=== PATIENT | male | born 1960 | race Two or more races ===

== ENCOUNTER 2020-01-11 20:00 | Emergency (ER) | payer MEDICARE, OTHER ==
[~2020-01-11] VITALS: Ht 167.6 cm; Wt 132.3 kg
--- NOTE | 2020-01-11 20:35 | PHYS DOC ---
General Adult EDM: Chief Complaint: ABDOMINAL PAIN HPI: HPI: 59-year-old male presents with right lower quadrant abdominal pain. He has had this pain for 4 days. He was not getting better so he decided he should be evaluated. 4 years ago, he had some kind of obstruction that they did a procedure to resolve. He did not have surgery. He's had no abdominal surgeries. He still has gallbladder and appendix. Patient denies fever or chills. The pain is a cramping sensation moderate to severe intensity. He denies nausea or vomiting. Review of Systems: Review of Systems: Constitutional: Denies fever or chills Eyes: Denies change in visual acuity HENT: Denies nasal congestion or sore throat Respiratory: Denies cough or shortness of breath Cardiovascular: Denies chest pain or edema GI: Right lower quadrant abdominal pain. Denies nausea, vomiting, bloody stools or diarrhea : Denies dysuria Musculoskeletal: Denies back pain or joint pain Integument: Denies rash Neurologic: Denies headache, focal weakness or sensory changes Endocrine: Denies polyuria or polydipsia Lymphatic: Denies swollen glands Psychiatric: Denies depression or anxiety Heart Score: Risk Factors: Risk Factors: DM, Current or recent (<one month) smoker, HTN, HLP, family history of CAD, obesity. Risk Scores: Score 0 - 3: 2.5% MACE over next 6 weeks - Discharge Home Score 4 - 6: 20.3% MACE over next 6 weeks - Admit for Clinical Observation Score 7 - 10: 72.7% MACE over next 6 weeks - Early Invasive Strategies Current Medications: Current Meds: Current Medications Medications (Trade) Dose Ordered Sig/Shmuel Start Time Stop Time Status Last Admin Dose Admin Info (Do NOT chart on this entry -- for MONITORING) 1 each PRN DAILY PRN 01/11/20 20:45 01/13/20 20:44 Iohexol (Omnipaque 300 Mg/ml) 25 ml 1X ONCE 01/11/20 20:30 01/11/20 20:31 DC Sodium Chloride 1,000 ml @ 1,000 mls/hr 1X ONCE 01/11/20 20:30 01/11/20 21:29 Allergies: Allergies: Allergies Coded Allergies Type Severity Reaction Last Updated Verified No Known Drug Allergies 01/11/20 No Physical Exam: PE: Constitutional: Well developed, mildly obese, well nourished, no acute distress, non-toxic appearance. [] HENT: Normocephalic, atraumatic, bilateral external ears normal, oropharynx mo ist, no oral exudates, nose normal. [] Eyes: PERRLA, EOMI, conjunctiva normal, no discharge. [] Neck: Normal range of motion, no tenderness, supple, no stridor. [] Cardiovascular: Heart rate regular rhythm, no murmur [] Lungs & Thorax: Bilateral breath sounds clear to auscultation [] Abdomen: Bowel sounds normal, soft, right sided tenderness, no masses, no pulsatile masses. [] Skin: Warm, dry, no erythema, no rash. [] Back: No tenderness, no CVA tenderness. [] Extremities: No tenderness, no cyanosis, no clubbing, ROM intact, no edema. [] Neurologic: Alert and oriented X 3, normal motor function, normal sensory function, no focal deficits noted. [] Psychologic: Affect normal, judgement normal, mood normal. [] EKG: EKG: [] Radiology/Procedures: Radiology/Procedures: [] Impressions: Exam: CT abdomen and pelvis with contrast INDICATION: Right lower quadrant pain for 4 days TECHNIQUE: Sequential axial images through the abdomen and pelvis obtained following the administration of 100 mL of Omni 300 IV contrast. Sagittal and coronal reformatted images were reconstructed from the axial data and reviewed. Comparisons: None FINDINGS: Heart size is normal. No pericardial effusion. Visualized lung bases are clear. No pleural effusion. Liver, spleen, pancreas, gallbladder and adrenals are unremarkable. No perinephric inflammation or hydronephrosis. There is a nonobstructing 2 mm calculus at the lower pole right kidney. No ureteral calculi are identified. Bladder is decompressed not well evaluated. Prostate is not enlarged. Few scattered diverticula are noted predominantly within the descending colon. There is a inflamed diverticula at the cecum with adjacent fat stranding. No focal fluid collection. Remainder of the large and small bowel are unremarkable. Appendix is normal. Abdominal aorta has a normal course and caliber. Abdominal vasculature is patent. No enlarged intra-abdominal lymph nodes are identified. No suspicious osseous lesions or acute fractures. IMPRESSION: Findings of acute diverticulitis at the cecum. No evidence for perforation or adjacent abscess. Exposure: One or more of the following in the visualized dose reduction techniques were utilized for this examination: 1. Automated exposure control 2. Adjustment of the MA and/or KV according to patient size 3. Use of iterative of reconstructive technique Electronically signed by: Irineo Sheppard MD (01/11/2020 9:25 PM) [id number] DICTATED AND SIGNED BY: IRINEO SHEPPARD MD DATE: 01/11/202124 CC: DAMIAN MONTERO DO; YANA DEE MD ~ Course & Med Decision Making: Course & Med Decision Making Pertinent Labs and Imaging studies reviewed. (See chart for details) The patient's CT is significant for acute diverticulitis of the cecum. I will treat him with Augmentin for 10 days. He had an elevated white count of 16.1. The rest of the patient's labs are unremarkable except for slight elevated alkaline phosphatase and bilirubin. His potassium is 3.3. His urinalysis is negative for infection. He is stable for discharge at this time. [] Dragon Disclaimer: Dragon Disclaimer: This electronic medical record was generated, in whole or in part, using a voice recognition dictation system. Departure Departure: Impression: Primary Impression: Acute diverticulitis Disposition: HOME, SELF-CARE Condition: STABLE Referrals: YANA DEE MD (PCP) Patient Instructions: Diverticulitis, [id number] Scripts Amoxicillin/Potassium Clav (AUGMENTIN 875-125 TABLET) 1 Each Tablet 1 TAB PO BID for diverticulitis for 10 Days, #20 TAB 0 Refills Prov: DAMIAN MONTERO DO 01/11/20 DAMIAN MONTERO DO Jan 11, 2020 20:35
[2020-01-11] MEDS ORDERED: CONTRAST GIVEN MC PRN (20:45)
[2020-01-11] MEDS: IV NORMAL SALINE 1,000ML 1,000 ML IV ONE (20:45)
[2020-01-11] MEDS: IOHEXOL 300 MG/ML 75 ML VIAL. IV ONE ×2 (20:52→20:53)
[2020-01-11 21:17] LABS: BASO # 0.1 x10^3/uL (0.0-0.2); BASO % 0 % (0-3); EOS # 0.1 x10^3/uL (0.0-0.7); EOS % 1 % (0-3); HEMATOCRIT 47.3 % (39.0-53.0); HEMOGLOBIN 15.5 g/dL (13.0-17.5); LYMPH # 1.8 x10^3/uL (1.0-4.8); LYMPH % 11 % (24-48); MEAN CORPUSCULAR HEMOGLOBIN 28 pg (25-35); MEAN CORPUSCULAR HGB CONC 33 g/dL (31-37); MEAN CORPUSCULAR VOLUME 84 fL (79-100); MONO # 1.3 x10^3/uL (0.0-1.1); MONO % 8 % (0-9); NEUT # 12.8 x10^3uL (1.8-7.7); NEUT % 80 % (31-73); PLATELET COUNT 232 x10^3/uL (140-400); RED BLOOD COUNT 5.63 x10^6/uL (4.30-5.70); RED CELL DISTRIBUTION WIDTH 13.8 % (11.5-14.5); WHITE BLOOD COUNT 16.1 x10^3/uL (4.0-11.0)
[2020-01-11 21:18] LABS: CALCIUM 8.9 mg/dL (8.5-10.1); POTASSIUM 3.3 mmol/L (3.5-5.1)
[2020-01-11 21:25] LABS: ALBUMIN 3.6 g/dL (3.4-5.0); ALBUMIN/GLOBULIN RATIO 0.9 (1.0-1.7); TOTAL BILIRUBIN 1.4 mg/dL (0.2-1.0); TOTAL PROTEIN 7.8 g/dL (6.4-8.2)
--- NOTE | 2020-01-11 21:28 | RAD ---
Exam: CT abdomen and pelvis with contrast INDICATION: Right lower quadrant pain for 4 days TECHNIQUE: Sequential axial images through the abdomen and pelvis obtained following the administration of 100 mL of Omni 300 IV contrast. Sagittal and coronal reformatted images were reconstructed from the axial data and reviewed. Comparisons: None FINDINGS: Heart size is normal. No pericardial effusion. Visualized lung bases are clear. No pleural effusion. Liver, spleen, pancreas, gallbladder and adrenals are unremarkable. No perinephric inflammation or hydronephrosis. There is a nonobstructing 2 mm calculus at the lower pole right kidney. No ureteral calculi are identified. Bladder is decompressed not well evaluated. Prostate is not enlarged. Few scattered diverticula are noted predominantly within the descending colon. There is a inflamed diverticula at the cecum with adjacent fat stranding. No focal fluid collection. Remainder of the large and small bowel are unremarkable. Appendix is normal. Abdominal aorta has a normal course and caliber. Abdominal vasculature is patent. No enlarged intra-abdominal lymph nodes are identified. No suspicious osseous lesions or acute fractures. IMPRESSION: Findings of acute diverticulitis at the cecum. No evidence for perforation or adjacent abscess. Exposure: One or more of the following in the visualized dose reduction techniques were utilized for this examination: 1. Automated exposure control 2. Adjustment of the MA and/or KV according to patient size 3. Use of iterative of reconstructive technique Electronically signed by: Irineo Michele MD (01/11/2020 9:25 PM) [id number]
[2020-01-11] MEDS ORDERED: AMOX1TAB61 PO (21:33)
[2020-01-11 21:37] LABS: % SEGS 76 % (35-66)
[2020-01-11 21:38] LABS: % ATYL 1 % (0-0); % EOS 3 % (0-5); % LYMPHS 14 % (24-48); % MONOS 6 % (0-10); PLT ESTIMATE ADEQUATE (ADEQUATE)
[2020-01-11 21:41] LABS: BILIRUBIN,URINE NEG (NEG); CLARITY,URINE CLEAR; COLOR,URINE YELLOW; GLUCOSE,URINE NEG (NEG)
[2020-01-11 21:42] LABS: BACTERIA,URINE 0 /HPF (0-FEW); NITRITE,URINE NEG (NEG); SQUAMOUS EPITHELIAL CELL,UR OCC /LPF; WBC,URINE OCC /HPF (0-4)
[2020-01-11] MEDS: AMOXICILLIN/K CLAV 875/125MG TABLET. PO ONE (21:50)
[2020-01-11 21:54] VITALS: BP 146/100
== END 2020-01-11 21:56 | disposition home or self-care (01) ==
LOC: ER 20:00
DX: K57.32 Diverticulitis of large intestine without perforation or abscess without bleeding (principal)
CPT/HCPCS: 36415; 74177; 80053; 81001; 83690; 85007; 85025; 99285; Q9967; J7030

== ENCOUNTER → 2020-03-13 | Outpatient (CLI) | payer MEDICARE, OTHER ==
[~2020-03-13] MED LIST: AMOX1TAB61 PO
--- NOTE | 2020-03-13 15:26 | RAD ---
3 views of the sacrum and coccyx without comparison for low back pain in the tailbone area, possible spina bifida. FINDINGS: There is no fracture or acute osseous abnormality identified. No suspicious osteoblastic or osteolytic bone lesions are seen. There does appear to be a spina bifida occulta at S5. IMPRESSION: 1. No acute osseous abnormality. 2. Spina bifida occulta at S1. This is of doubtful clinical significance. Electronically signed by: Cornelio Alexander MD (03/13/2020 3:23 PM) [id number]
== END | disposition home or self-care (01) ==
LOC: RAD 13:23
PROVIDERS: ATTEND Family Medicine
DX: M54.5 Low back pain (principal); Q05.8 Sacral spina bifida without hydrocephalus
CPT/HCPCS: 72220

== ENCOUNTER 2020-10-03 14:58 | Emergency (ER) | payer MEDICARE, OTHER ==
[~2020-10-03] VITALS: Ht 167.6 cm; Wt 137.5 kg
[2020-10-03] MEDS ORDERED: IOHEXOL 300 MG/ML 75 ML VIAL. IV ONE (15:30)
[2020-10-03] MEDS ORDERED: ASPIRIN CHEWABLE 81 MG TABLET. PO ONE (15:30)
[2020-10-03] MEDS ORDERED: MORPHINE SULFATE 4 MG/ML DISP.SYRIN. IV ONE (15:30)
[2020-10-03 15:44] LABS: BASO % 0 % (0-3); EOS # 0.3 x10^3/uL (0.0-0.7); EOS % 3 % (0-3); HEMATOCRIT 47.2 % (39.0-53.0); HEMOGLOBIN 15.7 g/dL (13.0-17.5); LYMPH # 2.4 x10^3/uL (1.0-4.8); LYMPH % 25 % (24-48); MEAN CORPUSCULAR HEMOGLOBIN 28 pg (25-35); MEAN CORPUSCULAR HGB CONC 33 g/dL (31-37); MEAN CORPUSCULAR VOLUME 84 fL (79-100); MONO # 0.7 x10^3/uL (0.0-1.1); MONO % 8 % (0-9); NEUT # 6.1 x10^3uL (1.8-7.7); NEUT % 64 % (31-73); PLATELET COUNT 236 x10^3/uL (140-400); RED BLOOD COUNT 5.64 x10^6/uL (4.30-5.70); RED CELL DISTRIBUTION WIDTH 13.4 % (11.5-14.5); WHITE BLOOD COUNT 9.5 x10^3/uL (4.0-11.0)
--- NOTE | 2020-10-03 15:45 | RAD ---
EXAM: Chest, single view. HISTORY: Epigastric pain. COMPARISON: None. FINDINGS: A frontal view of the chest is obtained. There is diffuse interstitial prominence. There is right greater than left pleural thickening likely due to extrapleural fat. There is a prominent card iac silhouette, likely due to portable technique. There is no consolidation, pleural fusion or pneumo thorax. IMPRESSION: Diffuse interstitial prominence without damon congestion or focal consolidation. Electronically signed by: Mary Grace Lemon MD (10/03/2020 3:42 PM) [id number]
--- NOTE | 2020-10-03 15:48 | PHYS DOC ---
Past History Past Medical History: Arthritis, GERD, Hypothyroid, Other Additional Past Medical Histor: COLITIS, NEUROPATHY Past Surgical History: Tonsillectomy, Other Additional Past Surgical Histo: BILATERAL CARPAL TUNNEL, NASAL SEPTUM Alcohol Use: None Adult General Chief Complaint Chief Complaint: ABDOMINAL PAIN HPI HPI Patient is a 60-year-old male presenting for centralized midline abdominal pain. Onset was first reported today at 1200 hrs. Patient reports having unremarkable morning, denies any recent changes in health or illness. Ate breakfast around 10 AM that consisted mostly of tortilla-based tortilla foods, denies any fatty or spicy foods. Reports 2 hours later experiencing generalized midline/epigastric abdominal pain. Patient attempted to take x2 doses of omeprazole with no improvement. Patient was on way to take family member to outpatient doctor appointment when he started developing 10 out of 10 severe centralized abdominal pain prompting him to report immediately to our ER for evaluation. Patient does admit since being in ER decreased in pain but still rates it 7 out of 10 in severity. Pain is sharp centralized to middle of abdomen without radiation. Patient reports having similar pain like this in the past when he was diagnosed with diverticulitis but admits his pain at that time was around his flank not midline. Denies any cardiac history, no prior abdominal surgeries. Denies any COVID-19 contact, fever, chest pain, shortness of breath, cough or sputum production, no nausea vomit or diarrhea, no bladder or bowel incontinence, no motor or sensory function loss, no neurologic deficits Review of Systems Review of Systems Fourteen body systems of review of systems have been reviewed. See HPI for pertinent positives and negative responses, other beckham all other systems are negative, non-pertinent or non-contributory Current Medications Current Medications Current Medications Medications (Trade) Dose Ordered Sig/Shmuel Start Time Stop Time Status Last Admin Dose Admin Aspirin (Aspirin Chewable) 324 mg 1X ONCE 10/03/20 15:30 10/03/20 15:31 DC 10/03/20 15:42 324 MG Hydromorphone HCl (Dilaudid) 1 mg 1X ONCE 10/03/20 16:15 10/03/20 16:30 DC 10/03/20 16:25 1 MG Iohexol (Omnipaque 300 Mg/ml) 75 ml 1X ONCE 10/03/20 15:30 10/03/20 15:31 DC 10/03/20 15:30 75 ML Morphine Sulfate (Morphine 4mg Syringe) 4 mg 1X ONCE 10/03/20 15:30 10/03/20 15:31 DC 10/03/20 15:43 4 MG Piperacillin Sod/ Tazobactam Sod (Zosyn) 4.5 gm STK-MED ONCE 10/03/20 17:05 10/03/20 17:06 DC Piperacillin Sod/ Tazobactam Sod 4.5 gm/Sodium Chloride 50 ml @ 100 mls/hr 1X ONCE 10/03/20 16:45 10/03/20 17:14 DC Sodium Chloride 50 ml @ As Directed STK-MED ONCE 10/03/20 17:05 10/03/20 17:06 DC Allergies Allergies Allergies Coded Allergies Type Severity Reaction Last Updated Verified No Known Drug Allergies 01/11/20 No Physical Exam Physical Exam Constitutional: Well developed, well nourished, no acute distress, non-toxic appearance. HENT: Normocephalic, atraumatic, bilateral external ears normal, oropharynx moist, no oral exudates, nose normal. Eyes: PERRLA, EOMI, conjunctiva normal, no discharge. Neck: Normal range of motion, no tenderness, supple, no stridor. Cardiovascular: Heart rate regular, sinus rhythm, no murmurs rubs or gallops Lungs & Thorax: Bilateral breath sounds clear to auscultation Abdomen: Bowel sounds normal, soft but distended, there is generalized midline and epigastric tenderness with palpation with guarding and rebound present, no palpable or visual masses, no pulsatile masses. Although difficult due to body habitus, positive Browne sign, negative Rovsing sign, negative heel strike Skin: Warm, dry, no erythema, no rash. Back: No tenderness, no CVA tenderness. Extremities: No tenderness, no cyanosis, no clubbing, ROM intact, no edema. Neurologic: Alert and oriented X 3, grossly normal motor & sensory function, no focal deficits noted. Psychologic: Anxious affect and mood Current Patient Data Vital Signs Vital Signs Date Time Temp Pulse Resp B/P (MAP) Pulse Ox O2 Delivery O2 Flow Rate FiO2 10/03/20 15:43 24 10/03/20 15:10 98.1 71 147/90 (109) 100 Room Air Lab Results Laboratory Tests Test 10/03/20 15:20 White Blood Count 9.5 x10^3/uL (4.0-11.0) Red Blood Count 5.64 x10^6/uL (4.30-5.70) Hemoglobin 15.7 g/dL (13.0-17.5) Hematocrit 47.2 % (39.0-53.0) Mean Corpuscular Volume 84 fL (79-100) Mean Corpuscular Hemoglobin 28 pg (25-35) Mean Corpuscular Hemoglobin Concent 33 g/dL (31-37) Red Cell Distribution Width 13.4 % (11.5-14.5) Platelet Count 236 x10^3/uL (140-400) Neutrophils (%) (Auto) 64 % (31-73) Lymphocytes (%) (Auto) 25 % (24-48) Monocytes (%) (Auto) 8 % (0-9) Eosinophils (%) (Auto) 3 % (0-3) Basophils (%) (Auto) 0 % (0-3) Neutrophils # (Auto) 6.1 x10^3uL (1.8-7.7) Lymphocytes # (Auto) 2.4 x10^3/uL (1.0-4.8) Monocytes # (Auto) 0.7 x10^3/uL (0.0-1.1) Eosinophils # (Auto) 0.3 x10^3/uL (0.0-0.7) Basophils # (Auto) 0.0 x10^3/uL (0.0-0.2) EKG EKG EKG ordered and interpreted by myself at 1606 ordered sinus rhythm at 64 bpm, prolonged QTC at 475 otherwise unremarkable intervals, no axis deviation, nonspecific T wave abnormalities noted in lead aVL otherwise no STEMI Radiology/Procedures Radiology/Procedures EXAM: Chest, single view. HISTORY: Epigastric pain. COMPARISON: None. FINDINGS: A frontal view of the chest is obtained. There is diffuse interstitial prominence. There is right greater than left pleural thickening likely due to extrapleural fat. There is a prominent cardiac silhouette, likely due to portable technique. There is no consolidation, pleural fusion or pneumothorax. IMPRESSION: Diffuse interstitial prominence without damon congestion or focal consolidation. Electronically signed by: Mary Grace Lemon MD (10/03/2020 3:42 PM) [id number] Heart Score HEART Score for Chest Pain: HEART Score for Chest Pain Response (Comments) Value History Slighlty/Non-Suspicious 0 ECG Normal 0 Age >45 - < 65 1 Risk Factors 1 or 2 Risk Factors 1 Troponin < Normal Limit 0 Total 2 Risk Factors: Risk Factors: DM, Current or recent (<one month) smoker, HTN, HLP, family history of CAD, obesity. Risk Scores: Risk Factors: DM, Current or recent (<one month) smoker, HTN, HLP, family history of CAD, obesity. Course & Med Decision Making Course & Med Decision Making Pertinent Labs and Imaging studies reviewed. (See chart for details) Although patient hemodynamically stable, patient's physical exam concerning with CT abdomen pelvis findings consistent with acute cholecystitis with gangrene General surgery at [facility] contacted and case discussed, d eclined patient transfer due to size and inability to tolerate bariatric status [facility] was contacted and case discussed, patient declined transfer due to high volume/census and inability to accept patient in timely manner [facility] contacted and case discussed. Patient was accepted under the care of Dr. Arauz, for continued medical and surgical intervention. Patient updated on proposed plan of care that included transfer and admission and he was amenable Patient started on IV Zosyn prior to ER transfer. Of note, last p.o. intake was 10 AM today Critical Care Time This patient required critical care. Due to the fact that the patient required a significant amount of one on one physician - patient contact time, ordering and review of studies, arranging urgent treatment with development of a management plan, evaluation of patients response to treatment with frequent reassessments, and discussions with other providers this patient required 62 minutes of critical care time. Critical care time was indicated due to the inherent instability and/or potential for instability in this patient. The critical care time that is allocated to this patient is above and beyond any time spent on any other billable procedures performed on this patient. Dragon Disclaimer Dragon Disclaimer This electronic medical record was generated, in whole or in part, using a voice recognition dictation system. Departure Departure: Impression: Primary Impression: Acute cholecystitis Disposition: 02 DC/TRF OTHER SHORT TERM HOS ([facility]) Admitting Physician: Other (DR ARAUZ) Condition: STABLE Referrals: YANA DEE MD (PCP) ADAM WATERMAN DO Oct 03, 2020 15:48
[2020-10-03 15:52] LABS: CALCIUM 8.8 mg/dL (8.5-10.1); CREATININE 1.1 mg/dL (0.7-1.3); GFR 68.8; POTASSIUM 3.6 mmol/L (3.5-5.1)
[2020-10-03 15:59] LABS: ALBUMIN 3.7 g/dL (3.4-5.0); ALBUMIN/GLOBULIN RATIO 0.9 (1.0-1.7); TOTAL BILIRUBIN 0.4 mg/dL (0.2-1.0); TOTAL PROTEIN 7.7 g/dL (6.4-8.2)
--- NOTE | 2020-10-03 16:10 | EKG ---
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
[2020-10-03] MEDS ORDERED: HYDROmorphone PF 1 MG/ML DISP.SYRIN IVP ONE (16:15)
--- NOTE | 2020-10-03 16:21 | RAD ---
CT scan of the abdomen and pelvis with contrast 10/03/2020 CLINICAL HISTORY: Midline abdominal pain since earlier today. TECHNIQUE: After the intravenous administration of 75 cc of Omnipaque 300, contiguous, 5 mm axial sec tions were obtained through the abdomen and pelvis. One or more of the following individualized dose reduction techniques were utilized for this study: 1. Automated exposure control. 2. Adjustment of the mA and/or kV according to patient size. 3. Use of iterative reconstruction technique. FINDINGS: Comparison study is dated 01/11/2020. Images through the lung bases demonstrate minimal dependent subsegmental atelectasis bilaterally. A 1.6 cm low-attenuation lesion is seen involving the left lobe of the liver consistent with a hepati c cyst, unchanged. The spleen, pancreas, and adrenal glands. Nonobstructing calculi are seen involvin g both kidneys. These measure 2-3 mm in size. Low-attenuation lesions are seen involving the lower po le of the right kidney which measure 5 mm to 1 cm in size. They likely represent cysts. No further im aging evaluation is recommended. They are unchanged. The abdominal aorta tapers normally. There is no evidence of bowel obstruction. No free fluid or free air is seen within the abdomen. Incidental note is made of a 2.7 cm lipoma involving the first porti on the duodenum. The gallbladder is distended. Mild diffuse wall thickening of the gallbladder is seen. Increased dens ity is seen within the adjacent fat. These findings are consistent with acute cholecystitis. Small co llections of air are seen within the anterior lumen of the gallbladder. This finding could be seen wi th gangrenous cholecystitis. Images through the pelvis demonstrate the urinary bladder to be contracted. No free fluid is seen. Mi nimal S-shaped curvature of the thoracolumbar spine is seen. Degenerative changes are seen involving the lower thoracic and mid and lower lumbar spine along with both hips. IMPRESSION: Findings are seen consistent with acute cholecystitis. Small collections of air are seen within the anterior lumen of the gallbladder which can be seen with gangrenous cholecystitis. These findings were discussed with Dr. Pérez. Electronically signed by: Fernando Tijerina MD (10/03/2020 4:18 PM) [id number]
[2020-10-03] MEDS ORDERED: PIPERACILLIN/TAZOBACTAM 4.5 GM in IV NORMAL SALINE 50ML 50 ML IV ONE (16:45)
[2020-10-03 16:53] LABS: BILIRUBIN,URINE NEG (NEG); CLARITY,URINE CLEAR; COLOR,URINE YELLOW; GLUCOSE,URINE NEG (NEG)
[2020-10-03 16:54] LABS: BACTERIA,URINE 0 /HPF (0-FEW); NITRITE,URINE NEG (NEG); RBC,URINE 0 /HPF (0-2); SQUAMOUS EPITHELIAL CELL,UR OCC /LPF; UROBILINOGEN,URINE 0.2 mg/dL (0.2 mg/dL); WBC,URINE RARE /HPF (0-4)
[2020-10-03] MEDS ORDERED: PIPERACILLIN/TAZOBACTAM 4.5 GM VIAL IV ONE (17:05)
[2020-10-03] MEDS ORDERED: IV NORMAL SALINE 50ML 50 ML ONE (17:05)
[2020-10-03 19:11] VITALS: BP 113/74
--- NOTE | 2020-10-07 10:05 | NUR ---
IP: patient notified of COVID result.
== END 2020-10-03 19:25 | disposition short-term general hospital (02) ==
LOC: ER 14:58
DX: K81.0 Acute cholecystitis (principal); M19.90 Unspecified osteoarthritis, unspecified site; K21.9 Gastro-esophageal reflux disease without esophagitis; E03.9 Hypothyroidism, unspecified; Z20.822 Contact with and (suspected) exposure to COVID-19
CPT/HCPCS: 36415; 71045; 74177; 80053; 81001; 82550; 83690; 84484; 85025; 85610; 85730; 87426; 93005; 96365; 96375; 99285; C9803; J1170; J2270; J2543; Q9967; U0003

== ENCOUNTER 2020-10-29 02:33 | Emergency (ER) | payer MEDICARE, OTHER ==
[~2020-10-29] VITALS: Ht 167.6 cm; Wt 137.5 kg
--- NOTE | 2020-10-29 03:05 | PHYS DOC ---
Past History Past Medical History: Arthritis, Diabetes, DVT, GERD, High Cholesterol, Hypertension, Hypothyroid, Other Additional Past Medical Histor: COLITIS, NEUROPATHY Past Surgical History: Tonsillectomy, Other Additional Past Surgical Histo: BILATERAL CARPAL TUNNEL, NASAL SEPTUM Smoking: Quit Greater Than 1 Year Alcohol Use: None Drug Use: None General Adult EDM: Chief Complaint: Chest pain HPI: HPI: 60-year-old male presents with report of chest pressure to sternal region that radiates to his left chest. Patient reports he was concerned because he had recently found his blood pressure to be elevated to 160s over 101. Patient reports he did take some lisinopril and then checked his blood pressure an hour later and had gone down to 145/98. Patient reports he has been concerned recently over his blood pressure and has been taking it hourly. Patient reports symptoms have improved upon arrival. Denies any leg swelling or calf tenderness. Patient does report history of DVT. Denies pleuritic pain. Denies shortness of air. Denies fever or chills. Denies cough. Denies known exposure to COVID-19. Review of Systems: Review of Systems: Constitutional: Denies fever or chills Eyes: Denies redness or eye pain HENT: Denies nasal congestion or sore throat Respiratory: Denies cough or shortness of breath Cardiovascular: Reports chest pain; denies palpitations GI: Denies abdominal pain, nausea, or vomiting : Denies dysuria or hematuria Musculoskeletal: Denies back pain or joint pain Integument: Denies rash or skin lesions Neurologic: Denies headache, focal weakness or sensory changes Complete systems were reviewed and found to be within normal limits, except as documented in this note. Allergies: Allergies: Allergies Coded Allergies Type Severity Reaction Last Updated Verified No Known Drug Allergies 01/11/20 No Physical Exam: PE: Constitutional: Well developed, obese, no acute distress, non-toxic appearance HENT: Normocephalic, atraumatic Eyes: Conjunctiva normal, no discharge Neck: Normal range of motion, no tenderness, supple Lungs & Thorax: No respiratory distress, equal chest rise and fall Abdomen: Soft, no tenderness Skin: Warm, dry, no erythema, no rash Extremities: No tenderness, ROM intact, no edema Neurologic: Alert and oriented X 3, normal motor function, normal sensory function, no focal deficits noted Psychologic: Affect anxious, judgment normal EKG: EKG: @0239 NSR at 91bpm, NO ST elevation, QRS 94ms, QT/QTc 362/447ms Radiology/Procedures: Radiology/Procedures: PROCEDURE: CHEST AP ONLY AP chest x-ray HISTORY: Chest pain. COMPARISON: Chest x-ray October 03, 2020 FINDINGS: Heart size upper limits of normal. At the right hilum there is a 2 cm rounded density overlapping the mediastinal silhouette, it is uncertain if this is a summation density of the pulmonary artery on and orbits represents mass or adenopathy, this was not apparent on the prior study from one month ago which may favor this is the pulmonary vessel rather than density from a new mass. No pneumothorax, pulmonary opacities or pleural effusions. Bones are unremarkable. IMPRESSION: No acute process evident. 2 cm round density at the right hilum most likely summation density of the pulmonary artery. Right hilar mass or adenopathy is considered less likely. This could be further assessed with PA lateral chest x-rays or CT chest imaging. Electronically signed by: Kevin Jimenez MD (10/29/2020 5:22 AM) [facility] [place]: HEART Score for Chest Pain: HEART Score for Chest Pain Response (Comments) Value History Slighlty/Non-Suspicious 0 ECG Normal 0 Age >45 - < 65 1 Risk Factors >3 Risk Factors or Hx CAD 2 Troponin < Normal Limit 0 Total 3 Risk Factors: Risk Factors: DM, Current or recent (<one month) smoker, HTN, HLP, family history of CAD, obesity. Risk Scores: Score 0 - 3: 2.5% MACE over next 6 weeks - Discharge Home Score 4 - 6: 20.3% MACE over next 6 weeks - Admit for Clinical Observation Score 7 - 10: 72.7% MACE over next 6 weeks - Early Invasive Strategies Course & Med Decision Making: Course & Med Decision Making Pertinent Labs and Imaging studies reviewed. (See chart for details) Patient presents with report of chest discomfort after having a slightly elevated blood pressure last night. Patient does have some significant cardiac risk factors. Patient also with history of prior DVT. Denies any pleuritic pain. Denies fever or chills. Denies cough. Denies known exposure to COVID- 19. EKG stable. Labs obtained and posted to chart. D-dimer within normal limits. Troponin x2 also within normal limits. Chest x-ray without acute process. Blood pressure improved during ER stay without intervention. Patient stable for discharge with outpatient follow-up with PCP/cardiology. Cardiology referral provided. Discussed findings and plan with patient, who acknowledges understanding and agreement. Nandini Disclaimer: Nandini Disclaimer: This electronic medical record was generated, in whole or in part, using a voice recognition dictation system. Departure Departure: Impression: Primary Impression: Chest pain Qualified Codes: R07.9 - Chest pain, unspecified Additional Impression: Anxiety about health Disposition: 01 DC HOME SELF CARE/HOMELESS Condition: STABLE Referrals: YANA DEE MD (PCP) EMMA OLGUIN MD Patient Instructions: Chest Pain (Nonspecific), [id number] YANA MARTE DO Oct 29, 2020 03:05
[2020-10-29 03:29] LABS: BASO % 1 % (0-3); EOS # 0.3 x10^3/uL (0.0-0.7); EOS % 3 % (0-3); HEMOGLOBIN 15.4 g/dL (13.0-17.5); LYMPH # 3.1 x10^3/uL (1.0-4.8); LYMPH % 33 % (24-48); MEAN CORPUSCULAR HEMOGLOBIN 28 pg (25-35); MEAN CORPUSCULAR HGB CONC 33 g/dL (31-37); MEAN CORPUSCULAR VOLUME 85 fL (79-100); MONO # 0.8 x10^3/uL (0.0-1.1); MONO % 8 % (0-9); NEUT # 5.3 x10^3uL (1.8-7.7); NEUT % 56 % (31-73); PLATELET COUNT 245 x10^3/uL (140-400); RED BLOOD COUNT 5.51 x10^6/uL (4.30-5.70); RED CELL DISTRIBUTION WIDTH 13.7 % (11.5-14.5); WHITE BLOOD COUNT 9.5 x10^3/uL (4.0-11.0)
[2020-10-29] MEDS ORDERED: IV NORMAL SALINE 1,000ML 1,000 ML IV ONE (03:30)
[2020-10-29] MEDS ORDERED: ASPIRIN 325 MG TABLET PO ONE (03:30)
[2020-10-29 03:34] LABS: CALCIUM 9.1 mg/dL (8.5-10.1); CREATININE 1.2 mg/dL (0.7-1.3); GFR 62.2; POTASSIUM 3.5 mmol/L (3.5-5.1)
[2020-10-29 03:49] LABS: ALBUMIN 3.9 g/dL (3.4-5.0); TOTAL BILIRUBIN 0.3 mg/dL (0.2-1.0); TOTAL PROTEIN 7.8 g/dL (6.4-8.2)
[2020-10-29 04:31] LABS: BACTERIA,URINE 0 /HPF (0-FEW); BILIRUBIN,URINE NEG (NEG); CLARITY,URINE CLEAR; COLOR,URINE YELLOW; GLUCOSE,URINE NEG (NEG); NITRITE,URINE NEG (NEG); RBC,URINE OCC /HPF (0-2); SQUAMOUS EPITHELIAL CELL,UR OCC /LPF; UROBILINOGEN,URINE 0.2 mg/dL (0.2 mg/dL); WBC,URINE OCC /HPF (0-4)
--- NOTE | 2020-10-29 05:24 | RAD ---
AP chest x-ray HISTORY: Chest pain. COMPARISON: Chest x-ray October 03, 2020 FINDINGS: Heart size upper limits of normal. At the right hilum there is a 2 cm rounded density overl apping the mediastinal silhouette, it is uncertain if this is a summation density of the pulmonary ar rylee on and orbits represents mass or adenopathy, this was not apparent on the prior study from one m onth ago which may favor this is the pulmonary vessel rather than density from a new mass. No pneumot horax, pulmonary opacities or pleural effusions. Bones are unremarkable. IMPRESSION: No acute process evident. 2 cm round density at the right hilum most likely summation den sity of the pulmonary artery. Right hilar mass or adenopathy is considered less likely. This could be further assessed with PA lateral chest x-rays or CT chest imaging. Electronically signed by: Kevin Jimenez MD (10/29/2020 5:22 AM) [facility]
[2020-10-29 07:17] VITALS: BP 120/75
== END 2020-10-29 07:18 | disposition home or self-care (01) ==
LOC: ER 02:33
DX: F41.9 Anxiety disorder, unspecified (principal); R07.2 Precordial pain; M19.90 Unspecified osteoarthritis, unspecified site; E11.9 Type 2 diabetes mellitus without complications; K21.9 Gastro-esophageal reflux disease without esophagitis; E78.00 Pure hypercholesterolemia, unspecified; I10 Essential (primary) hypertension; E03.9 Hypothyroidism, unspecified; Z86.718 Personal history of other venous thrombosis and embolism; Z87.891 Personal history of nicotine dependence
CPT/HCPCS: 36415; 71045; 80053; 81001; 82553; 83690; 83735; 83880; 84484; 85025; 85379; 85610; 85730; 93005; 96360; 99285; J7030